=== PATIENT | male | born 1985 | race Caucasian/White ===

== ENCOUNTER 2023-12-31 13:57 | Emergency (ER) | payer OTHER ==
[2023-12-31] MEDS ORDERED: AZITHROMYCIN 500 MG TABLET ONE (14:03)
[2023-12-31] MEDS: AZITHROMYCIN 250 MG TABLET PO ONE (14:05)
[2023-12-31 14:13] VITALS: BP 125/95; PULSE 90; RESP 18; TEMP 98.6; BMI 29.8
== END 2023-12-31 14:24 | disposition home or self-care (01) ==
LOC: FER 13:57
DX: Z20.811 Contact with and (suspected) exposure to meningococcus (principal)
CPT/HCPCS: 99283-25